=== PATIENT | female | born 1990 | race Caucasian/White ===

== ENCOUNTER → 2017-09-16 | Emergency (ER) | payer OTHER ==
[~2017-09-16] VITALS: Ht 165.1 cm; Wt 65.3 kg
[~2017-09-16] MED LIST: CELEBREX100 MG PO; ORPH100T PO; SKELAXIN800 MG PO; TUSSI PRES-B L120 M1 PO; ZITHROMAX TRI-500 MG PO
== END | disposition home or self-care (01) ==
LOC: ER 18:06
DX: R51 Headache (principal)

== ENCOUNTER 2018-02-01 16:31 | Emergency (ER) | payer OTHER ==
[~2018-02-01] VITALS: Ht 165.1 cm; Wt 61.2 kg
[2018-02-01] MEDS ORDERED: BENADRYL25 MG (17:26)
== END 2018-02-01 18:50 | disposition home or self-care (01) ==
LOC: ER 16:31
DX: T78.49XA Other allergy, initial encounter (principal); R21 Rash and other nonspecific skin eruption

== ENCOUNTER 2018-03-13 13:42 | Emergency (ER) | payer OTHER ==
[~2018-03-13] VITALS: Ht 165.1 cm; Wt 59.0 kg
[~2018-03-13 13:42] MED LIST changes: +BENADRYL25 MG
== END 2018-03-13 19:41 | disposition home or self-care (01) ==
LOC: ER 13:42
DX: B01.9 Varicella without complication (principal)

== ENCOUNTER 2018-07-15 13:42 | Emergency (ER) | payer OTHER ==
[~2018-07-15] VITALS: Ht 162.6 cm; Wt 58.1 kg
== END 2018-07-15 17:02 | disposition home or self-care (01) ==
LOC: ER 13:42
DX: K52.89 Other specified noninfective gastroenteritis and colitis (principal)

== ENCOUNTER 2018-09-14 14:24 | Emergency (ER) | payer OTHER ==
[~2018-09-14] VITALS: Ht 162.6 cm; Wt 58.1 kg
== END 2018-09-14 15:35 | disposition home or self-care (01) ==
LOC: ER 14:24
DX: M94.0 Chondrocostal junction syndrome [Tietze] (principal)

== ENCOUNTER 2019-02-17 13:34 | Emergency (ER) | payer OTHER ==
[~2019-02-17] VITALS: Ht 162.6 cm; Wt 60.3 kg
== END 2019-02-17 15:44 | disposition home or self-care (01) ==
LOC: ER 13:34
DX: B34.9 Viral infection, unspecified (principal)

== ENCOUNTER 2019-05-07 19:43 | Emergency (ER) | payer OTHER ==
[~2019-05-07] VITALS: Ht 165.1 cm; Wt 59.0 kg
[2019-05-08] MEDS ORDERED: KETO10TA2 PO (02:33)
== END 2019-05-08 03:03 ==
LOC: ER 19:43
DX: N83.291 Other ovarian cyst, right side (principal); R10.2 Pelvic and perineal pain

== ENCOUNTER 2019-05-15 21:43 | Emergency (ER) | payer OTHER ==
[~2019-05-15] VITALS: Ht 165.1 cm; Wt 59.0 kg
[~2019-05-15 21:43] MED LIST changes: +KETO10TA2 PO
== END 2019-05-15 22:46 | disposition home or self-care (01) ==
LOC: ER 21:43
DX: N83.292 Other ovarian cyst, left side (principal); N83.291 Other ovarian cyst, right side; R10.2 Pelvic and perineal pain

== ENCOUNTER → 2020-09-03 | Emergency (ER) | payer OTHER ==
[~2020-09-03] VITALS: Ht 162.6 cm; Wt 59.0 kg
[~2020-09-03] MED LIST changes: +LEVSIN/SL0.125 MG SL; +PEDIALYTE1000 ML; +PEPCID AC20 MG PO
== END | disposition home or self-care (01) ==
LOC: ER 15:26
DX: R10.31 Right lower quadrant pain (principal); I88.0 Nonspecific mesenteric lymphadenitis

== ENCOUNTER 2021-05-04 03:59 | Emergency (ER) | payer OTHER ==
[~2021-05-04] VITALS: Ht 162.6 cm; Wt 60.3 kg
[2021-05-04] MEDS ORDERED: VISTARIL50 MG PO (06:14)
[2021-05-04] MEDS ORDERED: KETO10TA2 PO (06:14)
== END 2021-05-04 06:23 ==
LOC: ER 03:59
DX: R07.89 Other chest pain (principal)

== ENCOUNTER 2021-07-18 18:57 | Emergency (ER) | payer OTHER ==
[~2021-07-18] VITALS: Ht 160 cm; Wt 62.1 kg
[~2021-07-18 18:57] MED LIST changes: +VISTARIL50 MG PO
== END 2021-07-18 23:24 | disposition home or self-care (01) ==
LOC: ER 18:57
DX: L04.0 Acute lymphadenitis of face, head and neck (principal); R22.1 Localized swelling, mass and lump, neck

== ENCOUNTER 2021-07-26 13:15 | Emergency (ER) | payer OTHER ==
[~2021-07-26] VITALS: Ht 162.6 cm; Wt 60.8 kg
[2021-07-26] MEDS ORDERED: PEPCID AC20 MG PO (22:39)
[2021-07-26] MEDS ORDERED: CARAFATE1 GM PO (22:39)
[2021-07-26] MEDS ORDERED: LEVSIN/SL0.125 MG SL (22:39)
== END 2021-07-26 22:59 | disposition home or self-care (01) ==
LOC: ER 13:15
DX: K29.60 Other gastritis without bleeding (principal); J45.998 Other asthma

== ENCOUNTER 2021-10-04 11:07 | Emergency (ER) | payer OTHER ==
[~2021-10-04] VITALS: Ht 162.6 cm; Wt 59.9 kg
[~2021-10-04 11:07] MED LIST changes: +CARAFATE1 GM PO
== END 2021-10-04 18:30 | disposition home or self-care (01) ==
LOC: ER 11:07
DX: R10.9 Unspecified abdominal pain (principal); R10.2 Pelvic and perineal pain

== ENCOUNTER 2022-03-21 12:41 | Emergency (ER) | payer OTHER ==
[~2022-03-21] VITALS: Ht 162.6 cm; Wt 64.4 kg
[2022-03-21] MEDS ORDERED: DUI500 PO (18:42)
[2022-03-21] MEDS ORDERED: DRAMAMINE LESS25 MG PO (18:42)
== END 2022-03-21 18:47 | disposition home or self-care (01) ==
LOC: ER 12:41
DX: R11.2 Nausea with vomiting, unspecified (principal); R42 Dizziness and giddiness; H66.90 Otitis media, unspecified, unspecified ear

== ENCOUNTER 2023-04-06 23:26 | Emergency (ER) | payer OTHER ==
[~2023-04-06] VITALS: Ht 162.6 cm; Wt 66.2 kg
[~2023-04-06 23:26] MED LIST changes: +DRAMAMINE LESS25 MG PO; +DUI500 PO
== END 2023-04-07 04:47 | disposition home or self-care (01) ==
LOC: ER 23:26
DX: S90.31XA Contusion of right foot, initial encounter (principal); X58.XXXA Exposure to other specified factors, initial encounter; Y93.89 Activity, other specified; Y92.89 Other specified places as the place of occurrence of the external cause; Y99.8 Other external cause status

== ENCOUNTER 2023-06-06 08:21 | Emergency (ER) | payer OTHER ==
[~2023-06-06] VITALS: Ht 162.6 cm; Wt 64.4 kg
[2023-06-06 09:19] LABS: HEMATOCRIT 39.2 % (36.0-45.00); HEMOGLOBIN 13.6 g/dL (12.0-15.00); MEAN CELL VOLUME 84.4 fL (80.00-100.00); MEAN CORPUSCULAR HEMOGLOBIN 29.2 pg (27.00-32.0); MEAN CORPUSCULAR HGB CONC 34.6 g/dl (32.0-36.0); PLATELET COUNT 224 K/uL (150-450); RED BLOOD COUNT 4.65 M/uL (4.00-6.00); RED CELL DISTRIBUTION WIDTH 13.6 % (11.5-14.5)
[2023-06-06 09:30] LABS: URINE APPEARANCE Cloudy; URINE BILIRRUBIN Negative (NEGATIVE); URINE BLOOD Negative; URINE COLOR Dark Yellow; URINE GLUCOSE Negative (NEGATIVE); URINE LEUKOCYTE Negative; URINE NITRATE Negative; URINE PROTEIN Trace (NEGATIVE)
[2023-06-06 09:31] LABS: URINE BACTERIA 1636.5 uL (0.0-1933); URINE EPITHELIAL CELLS 25.9 uL (0.0-38.8); URINE RBC 27.1 uL (0.0-20.8); URINE WBC 16.2 uL (0.0-23.2)
[2023-06-06 09:49] LABS: CALCIUM 8.8 mg/dL (8.5-10.1); CREATININE SERUM 0.87 mg/dL (0.55-1.02); GFR 75.45; POTASSIUM 3.6 mEq/L (3.5-5.1)
== END 2023-06-06 16:07 | disposition home or self-care (01) ==
LOC: ER 08:22
PROVIDERS: Emergency Medicine
DX: R31.9 Hematuria, unspecified (principal)
CPT/HCPCS: 36415; 74177; Q9965